=== PATIENT | male | born 1960 | race Caucasian/White ===

== ENCOUNTER 2017-01-20 10:47 | Emergency (ER) | payer OTHER ==
[2017-01-20 11:06] VITALS: BP 184/163
--- NOTE | 2017-01-20 12:06 | EDM.PDOC ---
ED HPI Trauma - General Chief Complaint: Upper Extremity Injury/Pain Stated Complaint: POSS BROKE RT ARM Time Seen by Provider: 01/20/17 11:50 Source: Reports: Patient History Limitations: Reports: No limitations - History of Present Illness INITIAL COMMENTS - FREE TEXT/NARRATIVE: Patient is a 56-year-old male who presents to the ED complaining of pinpoint tenderness to his right elbow. States he slipped on the ice and landed on the affected elbow. He has increased pain with palpation and also with flexion/ extension of the lower arm at the elbow. Denies any pain to his hand, wrist, forearm, upper arm, shoulder, or clavicle. He had no loss of consciousness nor complains of neck or back pain. He has no sensory motor deficits. He has no prior injury to the affected elbow. He has not taken any medications currently for the discomfort. Pain is under control. Allergies/ADRs: Allergies No Known Allergies Allergy (Verified 01/20/17 11:12) Home Medications: Ambulatory Orders . [No Known Home Meds] 01/20/17 [Confirmed 01/20/17] Past Medical History Respiratory History: Reports: Pneumothorax Social & Family History - Tobacco Use Smoking Status *Q: Current Every Day Smoker Years of Tobacco use: 35 Packs/Tins Daily: 0.5 - Caffeine Use Caffeine Use: Reports: None - Recreational Drug Use Recreational Drug Use: No Review of Systems - Review of Systems Review Of Systems: See Below Musculoskeletal: Reports: joint pain (elbow). Denies: neck pain, shoulder pain , back pain, hand pain Skin: Denies: bruising Neurological: Denies: numbness, paresthesia, tingling Trauma Exam - Physical Exam Exam: See Below Exam Limited By: No limitations General Appearance: Reports: alert, WD/WN, no apparent distress Head: Reports: atraumatic, normocephalic Ears: Reports: hearing grossly normal Nose: Reports: normal inspection Throat/Mouth: Reports: Normal voice, No airway compromise Neck: Reports: non-tender, full range of motion, normal alignment, normal inspection Respiratory Exam: Reports: no respiratory distress, lungs clear, normal breath sounds, no accessory muscle use, chest non-tender Cardiovascular: Reports: normal peripheral pulses, regular rate, rhythm Back: Reports: full range of motion, normal inspection, non-tender Extremities: Reports: other (Swelling noted to the right olecranon with increased pain noted along ramirez medial aspect. Pain with flexion/extension of forearm. No sensory deficits noted distally. No pain to fingers/hand/wrist/ forearm/upperarm/shoulder/clavicle. 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 No additional studies needed. 01/20/17 12:05 X-ray of the right elbow elicited small fracture to the head of the ulna. Minimally displaced. No other acute bony findings noted. Posterior splint placed with no complications with assistance by . No sensory motor deficits noted after splint placement. Arm sling ordered. Instructions as documented. No pain medications required for discharge. Patient has plenty at home. Departure - Departure Time of Disposition: 13:43 Disposition: Home, Self-Care 01 Condition: good Clinical Impression: Fracture, ulna, proximal Qualifiers: Encounter type: initial encounter Fracture type: closed Fracture morphology: unspecified fracture morphology Laterality: right Qualified Code(s): S52.001A - Unspecified fracture of upper end of right ulna, initial encounter for closed fracture Instructions: Cast or Splint Care, [id number] Referrals: PCP,None [Primary Care Provider] - Lucas Duncan MD [Physician] - Forms: ED Department Discharge, Return to Work/School Form Additional Instructions: X-ray revealed small fracture to the proximal ulna requiring splinting. Suggest calling [facility] today to make an appointment to be evaluated within the next 7 to 10 days. Elevate the affected extremity when able to reduce swelling and pain. Apply ice to the affected area 4 to 6 times daily, 30 minutes in duration, do not place ice directly on the skin. For pain take tylenol 650 mg every 6 hours and advil 600 mg every 6 hours in alternating fashion. Utilize arm sling for the next 3 days when standing and moving. Take off when icing moving arm at the shoulder. Return to the E.D. for any new or worsening symptoms.
--- NOTE | 2017-01-20 13:49 | CR ---
Right elbow: Four views of the right elbow were obtained. Very minimal chip fracture believed to be present as seen on the oblique view off the coronoid process. Joint spaces are preserved. No additional fracture or other abnormality is seen. Impression: 1. Minimal chip fracture believed to be present off the coronoid process. 2. Right elbow study is otherwise unremarkable. Diagnostic code #3
== END 2017-01-20 13:57 | disposition home or self-care (01) ==
LOC: JD.ED 10:47
DX: S52.001A Unspecified fracture of upper end of right ulna, initial encounter for closed fracture (principal); F17.210 Nicotine dependence, cigarettes, uncomplicated; W00.0XXA Fall on same level due to ice and snow, initial encounter
CPT/HCPCS: 29105; 29125; 73080-26-RT; 73080-RT; 99283-25; 99284-25